=== PATIENT | male | born 1945 | race Caucasian/White ===

== ENCOUNTER 2018-12-21 06:21 | Day surgery (SDC) | payer MEDICARE, OTHER, SELFPAY ==
[2018-12-06 12:07] VITALS: BMI 44.7
[2018-12-21] VITALS (12 sets, daily range): BP systolic 94–125; BP diastolic 53–73; PULSE 64–85; RESP 12–18; TEMP 36.1–36.7; O2SAT 91–97; BMI 44.7
--- NOTE | 2018-12-21 | DI.RAD.S_ITS ---
PROCEDURE: XR ANKLE RT MIN 3V INDICATIONS: RIGHT ANKLE ORIF TECHNIQUE: 3 views of the ankle were acquired. COMPARISON: [facility], MR, MR ANKLE RIGHT WITHOUT CONTRAST, 10/02/2017, 8:42. [facility], CR, XR FOOT 3 VIEWS WEIGHT BEARING RIGHT, 03/06/2018, 14:33. FINDINGS: Bones: No fractures or dislocations, and there has been cannulated screw fusion between the calcaneus and talus performed just before this set of images were obtained. Ankle mortise is normally aligned. No suspicious bony lesions. Soft tissues: No tibiotalar joint effusion. Achilles tendon appears normal. IMPRESSION: Talocalcaneal fusion utilizing 2 cannulated screws traversing through the posterior facet of the subtalar joint, establishing normal alignment. Dictated by: Kam Angel M.D. on 12/21/2018 at 13:00 Approved by: Kam Angel M.D. on 12/21/2018 at 13:08
--- NOTE | 2018-12-21 07:20 | PM.PREOP ---
Pre-operative Note Interval Note History & Physical reviewed/Exam performed by Physician: Yes Changes to H&P: No
[2018-12-21] MEDS: LACTATED RINGERS 1,000 ML 42 ML IV ×2 (07:41→09:51)
--- NOTE | 2018-12-21 07:43 | P.OP_ITS ---
Operative Date/Time/Diagnoses Date of procedure: 12/21/18 Time of procedure: 08:30 Pre-op diagnosis: 1. Right subtalar arthritis 2. Morbid obesity Post-op diagnosis: same Procedure & Clinicians Procedure: 1. Right subtalar arthrodesis CPT code 20557 Same procedure as scheduled: Yes Indications: The patient is a 73-year-old male with symptomatic right subtalar arthritis. He has exhausted conservative treatments including activity modifications, bracing, injections, anti-inflammatories and has requested surgical arthrodesis of the subtalar joint. Discussed the rationale for, risks of, and prolonged recovery associated with the surgery. The patient expressed understanding of all risks including its risks of infection, nerve damage, wound dehiscence, nonunion, malunion, symptomatic hardware, over correction or under correction of the deformity, incomplete relief of pain, inability to return to the patient's desired level of function, generalized dissatisfaction with the surgical procedure in outcome, deep vein thrombosis, pulmonary embolism, cardiac complications and . Patient understands the healing of bones and soft tissues will take approximately 3 months for full recovery will require 6-9 months. The patient also understands that is critical to elevate the operative extremity for the 1st 2 weeks after surgery to reduce both swelling and pain. The patient was counseled that no weight will be allowed on the surgical leg for approximately 8-12 weeks or until the patient is instructed that it is safe to initiate weight-bearing. The patient will utilize aspirin 325 mg b.i.d. for DVT prophylaxis. Patient was counseled on continuing of vitamin-D and calcium for bone health. Surgeon: Rosemary Felton Cup Trimming Machine Operator: Charity Luo Anesthesia Type: General and Peripheral nerve block Operative Notes Findings: Large os trigonum. Narrowed sclerotic and eburnated subtalar joint. The large os trigonum was excised. The subtalar joint was inspected, and was debrided back to bleeding bone surfaces. Allogenic bone graft Denise Bonus triad 5 cc was placed along the posterior facet filling the prepared surfaces. Next 2 Arthrex headless 7.0 screws measuring 90 and 85 mm were placed across the posterior facet under compression. Closure Type: primary Specimen(s): none sent Prosthetic devices, grafts, tissues, transplants, or devices: Arthrex 7.0 FT compression screws 90 mm, 85 mm Applied: other (Splint) Estimated Blood Loss (mL): 10 Blood products transfused: none Tourniquet time (min): 110 Procedure in detail: The patient was seen in the preoperative room site of surgery was marked and informed consent confirmed. The patient was then brought to the operating room and a postoperative block for postoperative pain control was performed by the anesthesia team. Anesthesia was administered. The patient was then moved to the operative table and positioned to the lateral position on the beanbag. All bony prominences were padded. An axillary roll was placed. An SCD was on the contralateral leg. A well-padded thigh tourniquet was placed. The surgical leg was then prepped and draped in the standard sterile fashion. A formal time-out procedure was performed confirming the patient, side and site of surgery, and presence of informed consent, the administration of appropriate preoperative antibiotics. All were in agreement. Subtalar arthrodesis: An incision was made just proximal to the tip of the fibula the base of the 4th metatarsal. This was later extended proximally for access to the large os trigonum. Dissection was carried to the skin and subcutaneous tissue. The sheath of the extensor digitorum brevis was opened. The extensor digitorum brevis was then subperiosteal E detached proximally and reflected distally and secured with a 2 0 PDS to retracted during the case. The sinus tarsi was cleared of soft tissue and suppressive dissection was performed at the level of the subtalar joint between the talus and calcaneus. The osteotomes and laminar spreaders were used in the subtalar joint and wound we removed what was left of the articular surface and debrided to the subchondral bone on the end under surface of the subtalar joint. This was very hard eburnated bone. Next at the patient's request due to its extremely large size of the large posterior os trigonum was addressed. The proximal aspect of the incision was extended the peroneal retinaculum was divided and tagged for later repair. The peroneal tendons were retracted and the large osteo trigonum was exposed and taken out in a piece meal fashion using the rongeur and pituitary. At this provided excellent access to the posterior aspect of the subtalar joint as well. Once we had good cancellous surfaces and maintained a normal shape and contour of the joints the wound was thoroughly irrigated and then the surfaces were drilled with the 2 0 drill bit and fish-scaled with the osteotomes. We then did a provisional reduction and pinning. The guidewires for the Arthrex 7.0 fully-threaded compression screws were then placed to cross the posterior facet of the talus these were made slightly divergent and checked in AP ankle lateral and axial fluoroscopic imaging to make sure they were spread throughout the bone and there was no medial calcaneal penetration. Once these were positioned adequately their withdrawn through the subtalar joint and a laminar field traffic investigator was used to open this up again. Next 5 cc of the Denise Bonus triad allograft with viable cells was placed into the joint. This was used as the patient was very large and therefore iliac crest bone aspirate was not used due to the patient's body habitus and to avoid donor site morbidity. The bone graft was placed along the posterior facet and along the prepared middle facet of the subtalar joint as well. Next compression was placed across the subtalar joint and the guidewires were once again drilled across the subtalar joint into the talus. Incisions were made at the back of the heel where the guide wires were placed and the guidewires were measured for a 90 and 85 mm screws. The plantar surface was then drilled using the preparation lateral cortex hand drill and then drilled across the joint site with the 5.0 mm drill. The screws were placed sequentially and made sure to not be prominent. The subtalar joint was rigidly fixed in approximately 5? of valgus. The screws had excellent purchase and compression. We were quite satisfied with the stability alignment hardware placement and this was noted both clinically and radiographically on multiple fluoroscopic views. In the tourniquet was then released and hemostasis was achieved. The wound was closed with 2 O Vicryl reapproximating the calcaneal fibular ligament and peroneal sheath. And deep tissues were also closed with 2 O Vicryl and the extensor digitorum brevis was reapproximated into its position using 2 0 Vicryl as well. Subcutaneous tissue was closed with 4 0 Monocryl and the skin was closed with 4 0 nylon in the joint preparation incision and 3 O nylon at the heel. A sterile dressing was placed with Xeroform gauze Webril ABD pad and bulky Aguilar cotton. A foot plate and U splint were applied. There was absolutely no plaster over the heel. The patient was woken from anesthesia. The patient was then transferred to the recovery room in good condition. There were no immediate complications from this procedure. Complications: none Condition: stable Disposition: PACU Plan for aftercare: Patient will be nonweightbearing on the affected extremity for 8-10 weeks followed by progressive weight-bearing. The patient will start taking 325 mm g of aspirin twice a day on postoperative day 1 for DVT prophylaxis. He will take a vitamin-D and calcium for bone health. They will follow up in the office in 1-2 weeks for conversion of a cast. Sutures will stay in place 3-4 weeks.
[2018-12-21] MEDS: CEFAZOLIN 2 GM/100 ML FROZ.PIGGY IV (07:45)
[2018-12-21] MEDS: BUPIVACAINE 0.25% W/ EPI 30 ML VIAL INJ (08:49)
[2018-12-21] MEDS: fentaNYL 100 MCG/2 ML INJ 50 MCG IV (11:29)
[2018-12-21] MEDS: OXYCODONE/ACETAMINOPHEN 5/325 TABLET 1 TAB PO ×2 (11:39→12:09)
== END 2018-12-21 14:19 | disposition home or self-care (01) ==
PROVIDERS: PCP Family Medicine; Visit Provider Orthopaedic Surgery Foot and Ankle Surgery
PROC: (CPT 28725; principal; 2018-12-21 07:45)
DX: M19.071 Primary osteoarthritis, right ankle and foot (principal); E66.01 Morbid (severe) obesity due to excess calories; G47.30 Sleep apnea, unspecified; Z68.41 Body mass index [BMI] 40.0-44.9, adult; Z87.891 Personal history of nicotine dependence; Z85.46 Personal history of malignant neoplasm of prostate
CPT/HCPCS: 28725; 73610; 76000; J0690; J1100; J2250; J2405; J2704; J3010

== ENCOUNTER 2019-09-02 08:20 | Day surgery (SDC) | payer MEDICARE, OTHER, SELFPAY ==
[2019-08-21 08:51] VITALS: BMI 42.0
[2019-09-02] VITALS (13 sets, daily range): BP systolic 85–129; BP diastolic 53–87; PULSE 67–109; RESP 12–20; TEMP 36–36.7; O2SAT 90–100; BMI 42.0
[2019-09-02] MEDS: CELECOXIB 200 MG CAPSULE PO (08:51)
[2019-09-02] MEDS: ACETAMINOPHEN 325 MG TABLET 975 MG PO (08:52)
[2019-09-02] MEDS: PREGABALIN 75 MG CAPSULE PO (08:52)
[2019-09-02] MEDS: LACTATED RINGERS 1,000 ML 42 ML IV ×2 (08:52→12:54)
--- NOTE | 2019-09-02 10:24 | PM.PREOP ---
Pre-operative Note Interval Note History & Physical reviewed/Exam performed by Physician: Yes Changes to H&P: No H&P completed within 30 days and has changed as indicated here:: Plan for R TKA
[2019-09-02] MEDS: CEFAZOLIN 2 GM/100 ML FROZ.PIGGY IV (10:40)
--- NOTE | 2019-09-02 11:15 | SUR.OPER ---
Supine on padded OR bed. Pillow under head, arms secured on padded armboards <90 degree abduction. Safety belt across torso. Non-operative leg secured with tape over blanket over lower leg. Operative leg on foam roller positioner per surgeon. bump under hip of operative leg.
[2019-09-02] MEDS: KETOROLAC 30 MG/ML VIAL IV (11:25)
[2019-09-02] MEDS: ROPIVACAINE 0.5% PF 5 MG/ML 20ML VIAL 60 ML INJ (11:26)
[2019-09-02] MEDS: SODIUM CHLORIDE IRRIG SOLUTION 250 ML, POVIDONE-IODINE SPONGE STICKS 1 APPLIC IRR (11:26)
[2019-09-02] MEDS: MORPHINE 4 MG/ML INJ INJ (11:26)
[2019-09-02] MEDS: TRANEXAMIC ACID 1,000 MG VIAL 1000 MG INJ (11:27)
--- NOTE | 2019-09-02 12:33 | P.OP_ITS ---
Operative Date/Time/Diagnoses Date of procedure: 09/02/19 Time of procedure: 12:33 Pre-op diagnosis: R knee OA Post-op diagnosis: same Procedure & Clinicians Procedure: Right total knee arthroplasty Same procedure as scheduled: Yes Indications: Osteoarthritis of the right knee with varus deformity Surgeon: Manjeet Garcia Deputy Sheriff Lieutenant: Chucho Conrad Anesthesia Type: General and Spinal Operative Notes Findings: Osteoarthritis of the right knee with varus deformity Closure Type: primary Specimen(s): none sent Prosthetic devices, grafts, tissues, transplants, or devices: [employer] Journey 2 femur size 7 (right) Tibia size 7 (right) Size 7-8 11 mm thick polyethylene deep dish Size 32 oval patellar button Estimated Blood Loss (mL): 50 Blood products transfused: none Tourniquet time (min): 75 Procedure in detail: Patient is met in the preoperative holding area with the sites of surgery were marked by MD. All last minute questions were answered. Patient was then brought back to the operating room where he was placed on the operating room table and given a spinal anesthetic. He was then placed supine and general anesthesia was started. A nonsterile tourniquet was placed on the right thigh and the right lower extremity was prepped and draped in normal sterile fashion. A surgical time-out was performed verifying the site and side of surgery as well as the name of the patient. A longitudinal incision over the right knee was made using 10. Blade. Followed by a new 10. Blade down through subcutaneous tissue down to the level of the extensor mechanism. A retention suture was placed at the apex of the quad and was even medial and lateral. A medial parapatellar arthrotomy was then performed using 10 Blade. A medial peel was performed using electrocautery and office fat pad was removed. The lateral meniscus was then excised in its entirety. The ACL was also removed. A drill was used into the femoral canal approximately 0.5 cm anterior to the PCL footprint. The same drill was used to enter the tibial canal just anterior to the ACL footprint. A right-sided 5 degree cutting block was then placed and a central cut was taken. The cutting block was then removed a intramedullary paris was then placed inside the tibia and a 3 degree posterior slope cutting jig was then placed on the tibia. This was then cut taking great care to protect the PCL as well as MCL. The cut piece was removed along with the medial meniscus. The extension space was then found to be a size 11. And was equal medial and lateral. Shipyard Supervisor was then used to set our femoral rotation and also for sizing which was a size 7. This was then drilled. A metal ruler was then used to compare this femoral rotation axis in comparison to the Whitesides line as well as epicondylar axis. The 5 in 1 block was then placed and the cuts were made. A trial size 7 femur was placed as was well as a size 7 tibial trial with 11 mm polyethylene insert. This found to have full extension, stable varus valgus. The patella was then freehand cut and drilled for 32 mm patella. The tibia was prepped. Trials were then removed and local injection was placed in the back and knee as well as the periarticular tissues. The knee was then pulse lavaged and the bone was dried. Cement was finger packed into the tibial holes well as the cut surface of the tibia. Cement was also placed in the back of the tibia. This was then placed and malleted into place. Cement was then finger packed onto the cut end of the femur except for the posterior cuts. Some was placed on the feet of the femoral component was then malleted into place. A trial 11 mm polyethylene was then placed all excess cement was removed and the knee was brought down to full extension. This point we cemented the patellar button. The wound was then flooded with Betadine while the cement cured. Once the cement was cured pulse lavage was used to evacuate all the Betadine the knee was brought through range of motion and a size 11 mm thickness poly was selected. This was then placed the knee was pulse lavaged a final time. The medial parapatellar arthrotomy was closed using 1. Vicryl in interrupted fashion followed by 2 Vicryl in the subcutaneous tissue followed by running strata fix and Aquacel dressing. Complications: none Post-operative Condition: stable Disposition: PACU Plan for aftercare: DVT prophyalxis is Eloquis. WBAT RLE. 24 hours post-op abx
--- NOTE | 2019-09-02 12:43 | PC.NURSE ---
Day shift: Pt not on AC unit at this time.
--- NOTE | 2019-09-02 12:53 | DI.RAD.S_ITS ---
PROCEDURE: XR KNEE RT 1TO2V INDICATIONS: POST OP TOTAL RIGHT KNEE TECHNIQUE: 2 view(s) of the knee acquired. COMPARISON: None. FINDINGS: Bones: Patient is status post knee joint arthroplasty. Hardware components are in expected positions. Visualized bony structures are intact. Soft tissues: Overlying postoperative changes are noted. IMPRESSION: Expected postoperative alignment after right total knee arthroplasty. Dictated by: Kam Angel M.D. on 09/02/2019 at 14:56 Approved by: Kam Angel M.D. on 09/02/2019 at 14:56
--- NOTE | 2019-09-02 13:31 | PC.NURSE ---
Day shift: Pt on unit at 1330 from PACU. Oriented to room and call light. Agrees to not get OOB w/o help from staff. PPP. VS WNL. 2L NC 95%. Denies pain and nausea. Denies any chest pain. Hx Afib. SCD's on. KOJO wrapped rt knee is CDI with bag of ice on it. Tolerating fluids. Will continue to monitor.
[2019-09-02] MEDS: LACTATED RINGERS 1,000 ML 125 ML IV ×2 (13:47→21:44)
[2019-09-02] MEDS: ACETAMINOPHEN 325 MG TABLET 650 MG PO ×2 (14:23→19:57)
[2019-09-02 14:59] LABS: Add Manual Diff / Slide Review NO; Basophils Absolute Auto 0 /uL (0-100); Basophils Percent Auto 0.3 % (0-2); Eosinophils Absolute Auto 0 /uL (0-450); Eosinophils Percent Auto 0.2 % (2-4); Hematocrit 43.7 % (41-53); Hemoglobin 14.6 g/dL (13.5-17.5); Lymphocytes Absolute Auto 600 /uL (1100-4500); Lymphocytes Percent Auto 6.6 % (25-40); Mean Corpuscular HGB Conc 33.3 % (30-36); Mean Corpuscular Hemoglobin 33.2 PG (26-34); Mean Corpuscular Volume 99.8 fL (80-100); Monocytes Absolute Auto 100 /uL (0-900); Monocytes Percent Auto 1.2 % (3-14); Neutrophils Absolute Auto 8600 /uL (1500-7000); Neutrophils Percent Auto 91.7 % (50-75); Platelet Count 192 X10^3/uL (150-400); Red Blood Cell Count 4.38 X10^6/uL (4.5-5.9); Red Cell Distribution Width 13.3 % (11.6-14.8); White Blood Cell Count 9.4 X10^3/uL (4.5-11.0)
[2019-09-02] MEDS: OXYCODONE IR 5 MG TABLET PO ×3 (15:16→21:38)
--- NOTE | 2019-09-02 17:41 | PT.IIE ---
Current Diagnoses Morbid (severe) obesity due to excess calories (09/02/19) Unilateral primary osteoarthritis, right knee (09/02/19) Surgery Performed Operation Date: 09/02/19 10:30 Actual Procedures p Total Knee Arthroplasty(Right) - Manjeet Garcia MD Surgical History (Last Updated 08/21/19 @ 09:18 by Radha Peterson, RN) History of colonoscopy (Acute) History of surgery (Acute 12/21/18) Hx of arthroscopy of left knee (Acute 04/22/13) Hx of arthroscopy of right knee (Acute) Hx of prostatectomy (Acute ~2004) Medical History (Last Updated 09/02/19 @ 09:27 by Rachel Rosales RN) Afib (Acute ~05/20/19) Cataracts, bilateral (Acute) Erectile dysfunction (Acute) Folliculitis (Acute) Former smoker (Acute) Glaucoma (Acute) Gout (Acute) History of chest pain (Acute) HLD (hyperlipidemia) (Acute) HTN (hypertension) (Acute) Macular degeneration (Acute) Neuropathy (Acute) Occlusion of right internal carotid artery (Acute) Osteoarthritis of right knee (Acute) Prostate cancer (Acute) RLS (restless legs syndrome) (Acute) Sleep apnea (Acute) Tinnitus (Acute) Tubular adenoma (Acute) Physical Therapy Inpatient Evaluation/Re-Eval M1 PT/OT-IP Prior Functional Status Start: 09/02/19 15:54 Freq: NEEDED Status: Active Protocol: Document 09/02/19 17:22 AW (Rec: 09/02/19 17:41 AW [id number]) Medical Review Prior Functional Status Medical History Reviewed Yes Communication Pt is an effective verbal communicator Mobility and Gait Independent without assistive device. Pt was comfortable with shopping trip distances. Activities of Daily Living and IADL's Independent Social History Household Members spouse Living Arrangements House Number of Floors (Floors) One Floor Number of Stairs To Enter/Railing? 1 ARPITA/threshold with no railing Home Environment High Toilet,Walk in Shower, Built-In Shower Seat Home Equipment Front Wheel Walker,Straight Cane,Crutches,Raised Toilet Seat Without Armrests,Hand Held Shower,Long Handled Shoe Horn Employment Status Retired Additional Social History Comment Pt lives with his spouse, Maria Del Carmen, who is available and able to assist as needed. M2 PT-IP Current Condition Start: 09/02/19 15:54 Freq: NEEDED Status: Active Protocol: Document 09/02/19 17:22 AW (Rec: 09/02/19 17:41 AW [id number]) Physical Therapy Current Condition Current Condition Evaluation Date 09/02/19 Treatment Diagnosis R TKA, impaired mobility Onset Date 09/02/19 Weight Bearing Status Weight Bearing Status Weight Bear as Tolerated M3 PT-IP Subjective Start: 09/02/19 15:54 Freq: NEEDED Status: Active Protocol: Document 09/02/19 17:22 AW (Rec: 09/02/19 17:41 AW [id number]) Subjective Physical Therapy Visit Type Type Initial Evaluation Visit Start Time 15:59 Visit Stop Time 16:29 Total Visit Minutes 30 Notes Pt's spouse present throughout evaluation Physical Therapy Visit Comments Patient Comments Pt is willing to participate with PT Patient Goals Pt hopes to return home as soon as possible Therapy Pain Assessment Pain When Pain Assessed During Mobility Pain Present Pain Present Pain Reported Location right knee Intensity 4 Scale Used 3/10 at rest; 4/10 during mobility Pain Management Techniques Apply Cold,Distraction,Timing of Activity with Medications M4 PT-IP Mobility and Gait Start: 09/02/19 15:54 Freq: NEEDED Status: Active Protocol: Document 09/02/19 17:22 AW (Rec: 09/02/19 17:41 AW [id number]) PT-Bed Mobility Assessment Supine to Sit Supine to Sit Standby Assistance Scooting Scooting to Edge of Bed Standby Assistance PT-Transfer Assessment Sit to and From Stand Sit to and from Stand Contact Guard Assistance,Use of Upper Extremities Equipment Transfer Assistive Device Gait Belt,Front Wheeled Walker Orthotic/Prosthetic Devices or Brace: No Transfers Transfer Destination Chair Transfer Technique pt ambulated with FWW Transfer Ability Level of Assist Contact Guard Assistance Comments Mobility Comments Pt sitting in bed upon PT arrival. He completed supine to sit from flat bed SBA and sat EOB for strength testing. BP in sitting was 126/58 and pt denied lightheadedness. He stood using FWW CGA and walked in the halls for gait assessment. Upon return to the room, pt transferred to the chair CGA and cues for use of BUE to control descent. Pt was positioned in the chair with fresh ice packs applied, call light and table within reach. SopO2 was 97% on room air after activity and BP was 126/ 86 HR 92. PT alerted RN that supplemental O2 had been removed but that oximeter was in place for alarm in case pt started to desat. Gait Assessment Gait Gait Assistance Required: Standby Assistance,1 Person Assist Distance (Feet) 100 Able to Maintain Weight Bearing Status Yes During Gait Assistive Devices Assistive Device Gait Belt,Front Wheeled Walker Orthotic/Prosthetic Devices or Brace: No Gait Deviations General Gait Pattern Antalgic,Decreased Stride Length,Decreased Feet Clearance,Flexed Trunk,Step-to Gait Factors Limiting Gait Function Factors Limiting Gait Function Decreased Activity Tolerance, Decreased Sensation,Decreased Strength,Limited Range of Motion,Pain Comments Gait Comments Pt ambulated in the halls with FWW SBA, requiring cues for upright posture and to equalize step lengths for improved weightbearing RLE. Stair Climbing Assessment Comments Stair Climbing Comments Not assessed. PT-Balance Assessment Sitting Balance and Reactions Static Sitting Balance Ability Normal Dynamic Sitting Balance Ability Normal Standing Balance and Reactions Static Standing Balance Ability Good Dynamic Standing Balance Ability Good Device Used FWW M5 PT-IP Objective Assessments Start: 09/02/19 15:54 Freq: NEEDED Status: Active Protocol: Document 09/02/19 17:22 AW (Rec: 09/02/19 17:41 AW [id number]) Orientation Orientation/Cognition Level of Alertness Alert Orientation Name,Day of Week,Place, Situation Language Function Ability No Deficits Noted Safety Awareness Understands Safety Issues Memory Description No Deficits Noted Gross Range of Motion Lower Extremity ROM Assessment Right Impaired Strength Lower Extremity Strength Assessment Right Impaired Hip B 4/5 Knee L 4/5 Ankle B 4+/5 Coordination Assessment Gross Coordination Gross Coordination WNL Sensation Assessment Sensation Gross Sensation WNL M6 PT-IP Treatment Start: 09/02/19 15:54 Freq: NEEDED Status: Active Protocol: Document 09/02/19 17:22 AW (Rec: 09/02/19 17:41 AW [id number]) Physical Therapy Treatment Exercises Exercises Ankle Pumps,Quad Sets,Heel Slides,Passive Knee Extension Hang Education Education Provided Precautions,Weight Bearing Status,Post-Op Packet,Safety Other Treatments Other Treatment Performed Provided education on role of PT, plan of care, weightbearing status, and safe use of FWW with pt able to return demonstrate safely. M7 PT-IP Assessment and Plan Start: 09/02/19 15:54 Freq: NEEDED Status: Active Protocol: Document 09/02/19 17:22 AW (Rec: 09/02/19 17:41 AW [id number]) PT Summary Assessment and Plan Potential Rehabilitation Potential Excellent Status of Condition at Evaluation Evolving Summary Impairments Pain,ROM,Strength,Balance,Bed Mobility,Transfers,Gait, Activity Tolerance Assessment Summary Ronal is a 73 yo man seen for PT eval on POD0 following R TKA. At baseline, he is independent with functional mobility but with mildly limited tolerance. On evaluation, he required CGA for transfers, SBA for ambulation with FWW. He exhibits good safety awareness and will be safe to discharge home with assist and outpatient PT once medically stable. Goals Bed Mobility Goal Independent Transfer Goal Independent,Front Wheeled Walker Gait Goal Independent,Front Wheel Walker Gait Distance 250 Other Goals - up/down platform step with FWW SBA Days to Meet Goals 2 Frequency of Treatment Frequency Of Treatment Twice a Day Treatment Plan Physical Therapy Treatment Plan Bed Mobility Training,Transfer Training,Gait Training, Therapeutic Exercise,Balance Retraining,Post Op Education, Discharge Planning,Hot or Cold Pack,Neuromuscular Re-ed, Coordination Retraining,Manual Therapy Other Recommendations and Next Treatment progress gait distance, review Focus ther ex, assess safety on platform step per goals Recommendations To Nursing Amount of Assist Needed Standby Assistance Discharge Recommendations PT Discharge Recommendations Home with Assistance, Outpatient PT Transportation Needs at Discharge Private Vehicle
[2019-09-02] MEDS: CEFAZOLIN VIAL 3 GM in SODIUM CHLORIDE 0.9% 100 ML 200 ML IV (18:50)
[2019-09-02] MEDS: DOCUSATE 100 MG CAPSULE PO (19:58)
[2019-09-02] MEDS: AMLODIPINE 5 MG TABLET PO (19:58)
[2019-09-02] MEDS: METOPROLOL IR 50 MG TABLET PO (19:58)
[2019-09-02] MEDS: LATANOPROST 0.005% EYE DROPS 1 EACH EYE-BOTH (20:02)
[2019-09-03 00:37] VITALS: BP 130/52; PULSE 93; RESP 20; TEMP 36.1; O2SAT 95
[2019-09-03] MEDS: OXYCODONE IR 5 MG TABLET PO ×4 (00:37→09:57)
--- NOTE | 2019-09-03 01:45 | PC.NURSE ---
Addendum entered by Germania Arango R.N. 09/03/19 03:51: Patient states pain is 3/10; requested/medicated with Oxycodone. Up to bathroom with walker and SBA. Patient able to get self in/out of bed independently. Original Note: Patient seen and assessed at 0139. Is alert and oriented. Breath sounds CTA with RA sat of 95%; using home CPAP. HRR but does have hx of afib. Denies nausea. BT present and is passing flatus. Voiding without dysuria, frequency or urgency. Is able to move self in bed. Is getting out of bed with 1 assist and using walker; reports weakness in right LE. Aquacel dressing + leena wrap to right knee is CDI. Chronic neuropathy plantar surface of bilateral feet but other CMS is intact and is able to lift right leg up off bed. Wearing bilateral calf SCD's. States pain is 3/10 so medicated with Oxycodone and ice pack applied with pain resolved. Fall risk score is moderate; bed alarm is activated.
[2019-09-03] MEDS: CEFAZOLIN VIAL 3 GM in SODIUM CHLORIDE 0.9% 100 ML 200 ML IV (03:05)
[2019-09-03 04:39] VITALS: BP 106/70; PULSE 71; RESP 20; TEMP 35.9; O2SAT 92
[2019-09-03 06:28] LABS: Hematocrit 38.4 % (41-53); Hemoglobin 12.9 g/dL (13.5-17.5)
[2019-09-03] MEDS: APIXABAN 5 MG TABLET PO (08:20)
[2019-09-03] MEDS: ACETAMINOPHEN 325 MG TABLET 650 MG PO (08:20)
[2019-09-03] MEDS: allopurinoL 300 MG TABLET PO (08:20)
[2019-09-03] MEDS: ATORVASTATIN 20 MG TABLET 40 MG PO (08:20)
[2019-09-03] MEDS: DOCUSATE 100 MG CAPSULE PO (08:20)
[2019-09-03 08:21] VITALS: BP 123/67; PULSE 71; RESP 18; TEMP 36.6; O2SAT 94
[2019-09-03] MEDS: SODIUM CHLORIDE 0.9% FLUSH 10 ML IV (08:22)
--- NOTE | 2019-09-03 09:08 | PT.IPTN ---
Current Diagnoses Morbid (severe) obesity due to excess calories (09/02/19) Unilateral primary osteoarthritis, right knee (09/02/19) Surgery Performed Operation Date: 09/02/19 10:30 Actual Procedures p Total Knee Arthroplasty(Right) - Manjeet Garcia MD Physical Therapy Treatment Note M2 PT-IP Current Condition Start: 09/02/19 15:54 Freq: NEEDED Status: Discharge Protocol: Document 09/02/19 17:22 AW (Rec: 09/02/19 17:41 AW [id number]) Physical Therapy Current Condition Current Condition Evaluation Date 09/02/19 Treatment Diagnosis R TKA, impaired mobility Onset Date 09/02/19 Weight Bearing Status Weight Bearing Status Weight Bear as Tolerated M3 PT-IP Subjective Start: 09/02/19 15:54 Freq: NEEDED Status: Discharge Protocol: Document 09/03/19 09:08 CLB (Rec: 09/03/19 11:17 CLB [id number]) Subjective Physical Therapy Visit Type Type Treatment Note Visit Start Time 09:08 Visit Stop Time 09:35 Total Visit Minutes 27 Number of DIRECTOR PUBLIC Visits 1 Physical Therapy Visit Comments Patient Comments Pt is willing to participate with PT Therapy Pain Assessment Pain When Pain Assessed During Mobility Pain Present Pain Present Pain Reported Location right knee Intensity 5 Scale Used Numeric (1 - 10) Pain Management Techniques Apply Cold,Distraction,Timing of Activity with Medications M4 PT-IP Mobility and Gait Start: 09/02/19 15:54 Freq: NEEDED Status: Discharge Protocol: Document 09/03/19 09:08 CLB (Rec: 09/03/19 11:17 CLB [id number]) PT-Bed Mobility Assessment Supine to Sit Supine to Sit Standby Assistance Scooting Scooting to Edge of Bed Standby Assistance PT-Transfer Assessment Sit to and From Stand Sit to and from Stand Standby Assistance Equipment Transfer Assistive Device Gait Belt,4 Wheeled Walker Orthotic/Prosthetic Devices or Brace: No Transfers Transfer Destination Chair Transfer Ability Level of Assist Standby Assistance Comments Mobility Comments Pt in bed upon arrival. Pt performed ther ex in bed then was able to get to EOB SBA on left side of bed. Pt stood SBA and ambulated in soto ~250ft. Pt performed stair training on platform step then wanted to try standard steps as well. Pt able to climb all steps SBA. Pt used BR sitting on toilet using grab bar SBA. Pt then ambulted to chair SBA sitting in chair. Left pt in chair with all needs within reach. Gait Assessment Gait Gait Assistance Required: Standby Assistance Distance (Feet) 250 Able to Maintain Weight Bearing Status Yes During Gait Assistive Devices Assistive Device Gait Belt,4 Wheeled Walker Orthotic/Prosthetic Devices or Brace: No Gait Deviations General Gait Pattern Antalgic,Decreased Stride Length,Decreased Feet Clearance,Flexed Trunk,Step-to Gait Factors Limiting Gait Function Factors Limiting Gait Function Decreased Activity Tolerance, Decreased Sensation,Decreased Strength,Limited Range of Motion,Pain Comments Gait Comments Pt ambulated in soto ~250ft with improved step length and posture. Stair Climbing Assessment Evaluation Level of Assist On Stairs Standby Assistance Devices Stair Climbing Assistive Devices Front Wheel Walker,Left Railing,Right Railing Technique/Endurance Stair Climbing Direction Ascend and Descend Stair Climbing Technique Step to Step Number of Steps Climbed 4 Stair Climbing Set # Repetitions (reps) 2 Comments Stair Climbing Comments Pt performed platform step SBA then performed one set of standard steps with bilateral rail. PT-Balance Assessment Sitting Balance and Reactions Static Sitting Balance Ability Normal Dynamic Sitting Balance Ability Normal Standing Balance and Reactions Static Standing Balance Ability Good Dynamic Standing Balance Ability Good Device Used FWW M5 PT-IP Objective Assessments Start: 09/02/19 15:54 Freq: NEEDED Status: Discharge Protocol: Document 09/02/19 17:22 AW (Rec: 09/02/19 17:41 AW [id number]) Orientation Orientation/Cognition Level of Alertness Alert Orientation Name,Day of Week,Place, Situation Language Function Ability No Deficits Noted Safety Awareness Understands Safety Issues Memory Description No Deficits Noted Gross Range of Motion Lower Extremity ROM Assessment Right Impaired Strength Lower Extremity Strength Assessment Right Impaired Hip B 4/5 Knee L 4/5 Ankle B 4+/5 Coordination Assessment Gross Coordination Gross Coordination WNL Sensation Assessment Sensation Gross Sensation WNL M6 PT-IP Treatment Start: 09/02/19 15:54 Freq: NEEDED Status: Discharge Protocol: Document 09/03/19 09:08 CLB (Rec: 09/03/19 11:17 CLB [id number]) Physical Therapy Treatment Exercises Exercises Ankle Pumps,Quad Sets,Heel Slides,Straight Leg Raises, Short Arc Quads,Passive Knee Extension Hang,Seated Knee Flexion/Extension Knee ROM Measurement 90 degrees Education Education Provided Precautions,Weight Bearing Status,Post-Op Packet,Safety Other Treatments Other Treatment Performed adjusted 4WW handle for proper height. M7 PT-IP Assessment and Plan Start: 09/02/19 15:54 Freq: NEEDED Status: Discharge Protocol: Document 09/03/19 09:08 CLB (Rec: 09/03/19 11:17 CLB [id number]) PT Summary Assessment and Plan Potential Rehabilitation Potential Excellent Status of Condition at Evaluation Evolving Summary Impairments Pain,ROM,Strength,Balance,Bed Mobility,Transfers,Gait, Activity Tolerance Assessment Summary Pt improved with all mobility. Pt able to perform straight leg raise and heel slide to 90 degrees. Pt is SBA for all bed mobility, gait and stairs. Pt had no c/o dizziness or lightheadedness. Pt seems safe to d/c home with to assist. Goals Bed Mobility Goal Independent Transfer Goal Independent,Front Wheeled Walker Gait Goal Independent,Front Wheel Walker Gait Distance 250 Other Goals - up/down platform step with FWW SBA Days to Meet Goals 2 Frequency of Treatment Frequency Of Treatment Twice a Day Treatment Plan Physical Therapy Treatment Plan Bed Mobility Training,Transfer Training,Gait Training, Therapeutic Exercise,Balance Retraining,Post Op Education, Discharge Planning,Hot or Cold Pack,Neuromuscular Re-ed, Coordination Retraining,Manual Therapy Recommendations To Nursing Amount of Assist Needed Standby Assistance Discharge Recommendations PT Discharge Recommendations Home with Assistance, Outpatient PT Transportation Needs at Discharge Private Vehicle
--- NOTE | 2019-09-03 10:40 | PC.NURSE ---
Day shift: Pt left unit at this time (1040) in WC w/ [employer]. Taken to car driven by Pt's spouse. They will be travelling to [place]. Paperwork signed and all questions answered. Medicated for pain per MAR prior to d/c. Pt has all personal belongings. Pt has MD tanner. KOJO wrap in place with Aquacel under. These appear CDI.
--- NOTE | 2019-09-03 11:50 | PM.PNPO.1 ---
Subjective Subjective Date Patient Seen: 09/03/19 Time Patient Seen: 07:00 Interval history: POD #1 s/p RTKA with Dr. Garcia. No acute events overnight. Patient states feels minor pain in his right knee. He is able to void without difficulty or assistance. He is mobilizing well with PT. Patient denies fever, chills, chest pain, shortness of breath, pain in calves Exam Vital Signs (past 8 hours): - 09/03/19 04:39 09/03/19 08:21 Temperature 96.7 F L 97.9 F Pulse Rate 71 71 Respiratory Rate 20 18 Blood Pressure 106/70 123/67 Pulse Oximetry 92 94 Oxygen Delivery Method CPAP Oxygen Flow Rate 0 Narrative Exam Narrative: 73 yo M is laying comfortably in bed, in no apparent distress. A&Ox3. Aquacel dressing CDI, SCDs in place. Able to actively dorsiflex/plantar flex BL. Sensory function grossly intact to light touch in LE BL. Calves warm, soft, compressible, non tender to palpation BL. Dorsalis pedis 2+ BL. Objective Labs Result Diagrams: 09/03/19 06:11 Labs: Laboratory Results - last 24 hr 09/02/19 09/03/19 14:25 06:11 WBC 9.4 RBC 4.38 L Hgb 14.6 12.9 L Hct 43.7 38.4 L MCV 99.8 MCH 33.2 MCHC 33.3 RDW 13.3 Plt Count 192 Neut % (Auto) 91.7 H Lymph % (Auto) 6.6 L [place] % (Auto) 1.2 L Eos % (Auto) 0.2 L Baso % (Auto) 0.3 Neut # (Auto) 8600 H Lymph # (Auto) 600 L [place] # (Auto) 100 Eos # (Auto) 0 Baso # (Auto) 0 Assessment & Plan Post-op Postoperative Procedures: Procedures Operation Date: 09/02/19 10:30 Actual Procedures Side Surgeon p Total Knee Arthroplasty Right Manjeet Garcia MD Postoperative day: 1 Postoperative status: doing well Postoperative status narrative: s/p right total knee arthroplasty Postoperative plan: discharge Postoperative plan narrative: Patient is ready for discharge home pending clearance by physical therapy. Given prescription for oxycodone 5mg #40 and docusate sodium Patient will resume his Eliquis this AM for DVT prophylaxis and continue his home meds upon discharge He will begin outpatient physical therapy on 09/09/2019 He will follow up in clinic in 2 weeks Time Spent With Patient Time with patient: less than 15 minutes
--- NOTE | 2019-09-03 15:34 | CM.SWNOTE ---
DCP/Assessment: Reviewed chart. Patient is 73yr old male admitted to [facility] for right TKA performed on 09-02-[address] Garcia. No PCP listed. Primary payor 1)Medicare 2)[facility]. Attempted to meet with patient to discuss d/c planning. Patient had already discharged at time of visit with no d/c planning needs. P: Home today. CLAUDIA Faye
== END 2019-09-03 10:42 | disposition home or self-care (01) ==
LOC: AC 09-03 07:50 → OR 09-03 12:38
PROVIDERS: PCP Family Medicine; Referring Provider Orthopaedic Surgery Adult Reconstructive Orthopaedic Surgery; Visit Provider Orthopaedic Surgery Adult Reconstructive Orthopaedic Surgery
PROC: 0SRC0JZ Replacement of Right Knee Joint with Synthetic Substitute, Open Approach (ICD-10-PCS; CPT 27447; principal; 2019-09-02 10:30)
DX: M17.11 Unilateral primary osteoarthritis, right knee (principal); E66.01 Morbid (severe) obesity due to excess calories; M21.161 Varus deformity, not elsewhere classified, right knee; I48.91 Unspecified atrial fibrillation; I10 Essential (primary) hypertension; G47.33 Obstructive sleep apnea (adult) (pediatric); M10.9 Gout, unspecified; Z68.41 Body mass index [BMI] 40.0-44.9, adult
CPT/HCPCS: 27447; 36415; 73560; 85014; 85018; 85025; 97110; 97116; 97161; C1776; J0690; J1100; J1885; J2250; J2270; J2405; J2704; J3010

== ENCOUNTER → 2019-10-05 09:30 | Outpatient (CLI) | payer MEDICARE, OTHER, SELFPAY ==
[2019-09-02 13:59] VITALS: BMI 42.0
[2019-10-07 03:36] LABS: COVID19 Sendout Not Detected (Not Detected)
== END ==
PROVIDERS: PCP Family Medicine; Visit Provider Registered Nurse
DX: Z01.818 Encounter for other preprocedural examination (principal)
CPT/HCPCS: 87635

== ENCOUNTER 2019-10-07 10:58 | Day surgery (SDC) | payer MEDICARE, OTHER, SELFPAY ==
[2019-09-02 13:59] VITALS: BMI 42.0
[2019-10-07 12:01] VITALS: BP 117/81; PULSE 102; RESP 16; TEMP 36.8; O2SAT 98; BMI 40.6
[2019-10-07] MEDS: LACTATED RINGERS 1,000 ML 42 ML IV (12:13)
--- NOTE | 2019-10-07 12:40 | PM.PREOP ---
Pre-operative Note Interval Note History & Physical reviewed/Exam performed by Physician: Yes Changes to H&P: No H&P completed within 30 days and has changed as indicated here:: Plan for R knee BRYN. Risks and benefits of surgery were discussed with the patient including the risks of iatrogenic fracture. Patient demonstrates understanding and wishes to proceed.
--- NOTE | 2019-10-07 13:13 | PM.OP.1 ---
Operative Date/Time/Diagnoses Date of procedure: 10/07/19 Time of procedure: 13:13 Pre-op diagnosis: Right knee arthrofibrosis s/p TKA Post-op diagnosis: same Procedure & Clinicians Procedure: R knee BRYN Same procedure as scheduled: Yes Indications: right knee stiffness s/p R TKA. Flexion to 70 degrees. Surgeon: Manjeet Garcia Click Yes if Unassisted: Yes Anesthesia Type: Sedation Operative Notes Findings: ROM from 5-70 with a hard stop. Slow progress with PT. Procedure in detail: Patient was met in the pre-op holding area. All last minuted questions were answered. Informed consent was reviewed and signed, including the risks of iatrogenic fracture and extensor mechanism injury. Patient was brought to the OR where a timeout was performed and the site and side of surgery were confirmed. Patient was then transferred onto the operating room table. Patient was given sedation which include propofol. Preoperative imaging was taken demonstrating flex to approximately 70? of flexion. A gentle manipulation was performed and post manipulation flexion was to approximately 110? of flexion. Patient was then allowed to awaken from the propofol sedation and he was transferred onto the [facility]. Extensor mechanism was tested well and was intact. Neurovascular intact. Post-operative Condition: stable Disposition: PACU Plan for aftercare: Continue agressive PT. First PT tomorrow. WBAT RLE
[2019-10-07 13:15] VITALS: BP 108/79; PULSE 95; RESP 21; TEMP 36.8; O2SAT 98
--- NOTE | 2019-10-07 13:15 | DI.RAD.S_ITS ---
PROCEDURE: XR KNEE RT 1TO2V INDICATIONS: post op right knee arthroplasty TECHNIQUE: 2 views of the knee acquired. COMPARISON: [facility], CR, XR KNEE ARTHRITIC SERIES RT, 09/06/2019, 14:04. [facility], CR, XR KNEE RT 1TO2V, 09/02/2019, 12:46. FINDINGS: Bones: Postsurgical changes are redemonstrated status post right knee arthroplasty. Alignment appears unchanged. No new suspicious periprosthetic lucencies. No discrete bony erosions or periosteal reaction. Soft tissues: There is a moderate to large joint effusion, increased from the prior study. There is also increased periarticular soft tissue swelling. IMPRESSION: 1. Moderate to large joint effusion, increased from the prior study, with increased periarticular soft tissue swelling. The findings are nonspecific but are suspicious for possible infection. Recommend correlation clinically. 2. Right knee prosthesis redemonstrated without definite radiographic evidence of osteomyelitis. Dictated by: Morteza Looney M.D. on 10/07/2019 at 13:44 Approved by: Morteza Looney M.D. on 10/07/2019 at 13:51
[2019-10-07 13:20] VITALS: BP 119/72; PULSE 106; RESP 25; O2SAT 98
[2019-10-07 13:25] VITALS: BP 122/87; PULSE 99; RESP 23; O2SAT 97
[2019-10-07] MEDS: OXYCODONE/ACETAMINOPHEN 5/325 TABLET 1 TAB PO (13:26)
[2019-10-07] MEDS: ONDANSETRON 4 MG/2 ML INJ IV (13:26)
[2019-10-07 13:30] VITALS: BP 125/87; PULSE 88; RESP 22; O2SAT 97
[2019-10-07 13:39] VITALS: BP 135/84; PULSE 97; RESP 16; TEMP 37; O2SAT 97
== END 2019-10-07 14:02 | disposition home or self-care (01) ==
LOC: OR 11:02 → AC 11:02
PROVIDERS: PCP Family Medicine; Referring Provider Family Medicine; Visit Provider Orthopaedic Surgery Adult Reconstructive Orthopaedic Surgery
PROC: (CPT 27570; principal; 2019-10-07 12:45)
DX: T84.82XD Fibrosis due to internal orthopedic prosthetic devices, implants and grafts, subsequent encounter (principal)
CPT/HCPCS: 27570; 73560; J2405; J2704